=== PATIENT | male | born 1945 | race Two or more races ===

== ENCOUNTER 2018-10-29 11:24 | Emergency (ER) | payer OTHER ==
[~2018-10-29] VITALS: Ht 167.6 cm; Wt 68.0 kg
[2018-10-29 11:33] VITALS: BP 178/90
[2018-10-29] MEDS ORDERED: KETOROLAC TROMETH 30 MG/ML 1ML VIAL IM ONE (14:30)
[2018-10-29] MEDS ORDERED: METHOCARBAMOL 500 MG TAB PO ONE (14:30)
== END 2018-10-29 15:10 | disposition home or self-care (01) ==
LOC: EDSEX 11:24 → ER 11:24
DX: R07.89 Other chest pain (principal); M25.512 Pain in left shoulder; E11.9 Type 2 diabetes mellitus without complications; V43.52XA Car driver injured in collision with other type car in traffic accident, initial encounter; Y93.89 Activity, other specified; Y92.488 Other paved roadways as the place of occurrence of the external cause; Y99.8 Other external cause status
CPT/HCPCS: 71046; 96372; 99283; J1885